=== PATIENT | female | born 1940 ===

== ENCOUNTER 2017-08-30 16:19 | Emergency (ER) | payer MEDICARE ==
[2017-08-30 16:19] VITALS: BMI 24.1
[2017-08-30 16:50] VITALS: BP 128/77; PULSE 76; RESP 18; TEMP 98.2; O2SAT 99
[2017-08-30] MEDS ORDERED: Lidocaine 5% Patch TD STA (17:37)
[2017-08-30] MEDS ORDERED: Lidocaine 5% Patch TD ONE (17:45)
--- NOTE | 2017-08-30 18:33 | C.PDOC ---
History Of Present Illness 77 yr old female presents to the ER s/p fall earlier this morning. Patient states she was babysitting her great grand son who was on the bed and upon calling him to her, he ran hard and slammed into her causing her to fall backwards on to the dresser, hitting the right side of the neck, right side of face and right shoulder. Patient states she did not fall to the ground but sat on the floor. Patient states she was able to stand up on her own, go about her day and the pain is 10/10. Reports taking Motrin but now feels her neck is stiff , unable to turn her neck to the right and has pain to the right side of her face. Patient denies LOC, vision changes, nausea, vomiting, headache, weakness or numbness. Time Seen by Provider: 08/30/17 17:29 Chief Complaint (Nursing): Headache History Per: Patient History/Exam Limitations: no limitations Onset/Duration Of Symptoms: Sudden Onset (Earlier this morning) Current Symptoms Are (Timing): Still Present Past Medical History Reviewed: Historical Data, Nursing Documentation, Vital Signs Vital Signs: Last Vital Signs Temp 98.2 F 08/30/17 16:46 Pulse 76 08/30/17 16:46 Resp 18 08/30/17 16:46 BP 128/77 08/30/17 16:46 Pulse Ox 99 08/30/17 18:37 - Medical History PMH: Depression, Gastritis Surgical History: Endoscopy (2008), Tonsillectomy (1946) - [facility] Procedures CYSTOSCOPY NEC (02/26/14) URETHRAL DILATION (02/26/14) Family History: States: No Known Family Hx - Social History Hx Tobacco Use: No Hx Alcohol Use: No Hx Substance Use: No - Immunization History Hx Tetanus Toxoid Vaccination: No Hx Influenza Vaccination: No Hx Pneumococcal Vaccination: No Review Of Systems Except As Marked, All Systems Reviewed And Found Negative. Constitutional: Positive for: Other ((+) Right side of face pain.) Eyes: Negative for: Vision Change Gastrointestinal: Negative for: Nausea, Vomiting Musculoskeletal: Positive for: Neck Pain (Right side ), Shoulder Pain (Right ) Neurological: Negative for: Weakness, Numbness, Headache Physical Exam - Physical Exam Appears: Non-toxic, No Acute Distress Skin: Warm, Dry, No Rash, Other ((+) Abrasion to the top tip of right ear. ) Head: Normacephalic, Other ((+) Tenderness to the right occipital scalp region. No laceration. Tenderness to the right SMC. ) Eye(s): bilateral: Normal Inspection, PERRL, EOMI Neck: Normal, Normal ROM, Supple, Other (No bruising.) Chest: Symmetrical, No Tenderness Cardiovascular: Rhythm Regular, No Murmur Respiratory: Normal Breath Sounds, No Rales, No Rhonchi, No Stridor, No Wheezing Extremity: Normal ROM (Right shoulder), Other (Right Shoulder - No bruising.) Neurological/Psych: Oriented x3, Normal Speech, Normal Motor ED Course And Treatment O2 Sat by Pulse Oximetry: 99 (RA) Pulse Ox Interpretation: Normal Medical Decision Making Medical Decision Making: PLAN: * Lidoderm TD * Flexeril PO * Motrin PO * Tylenol PO Disposition Counseled Patient/Family Regarding: Diagnosis, Need For Followup, Rx Given - Disposition Disposition: HOME/ ROUTINE Disposition Time: 18:42 Condition: STABLE Prescriptions: Cyclobenzaprine [Cyclobenzaprine HCl] 10 mg PO TID #15 tab Ibuprofen [Motrin] 1 tab PO TID PRN #30 tab PRN Reason: Pain Instructions: Contusion in Adults (ED) Forms: Gen Discharge Inst Venezuelan, [employer] (Venezuelan) - POA Present On Arrival: None - Clinical Impression Clinical Impression: Contusion, Head injury - Scribe Statement The provider has reviewed the documentation as recorded by the Scribe Edyta Mcclelland Provider Attestation: All medical record entries made by the Scribe were at my direction and personally dictated by me. I have reviewed the chart and agree that the record accurately reflects my personal performance of the history, physical exam, medical decision making, and the department course for this patient. I have also personally directed, reviewed, and agree with the discharge instructions and disposition.
== END 2017-08-30 18:47 | disposition home or self-care (01) ==
LOC: C.ER 16:19
DX: S00.83XA Contusion of other part of head, initial encounter (principal); W01.190A Fall on same level from slipping, tripping and stumbling with subsequent striking against furniture, initial encounter; Y93.89 Activity, other specified; Y92.89 Other specified places as the place of occurrence of the external cause

== ENCOUNTER 2017-09-22 15:09 | Emergency (ER) | payer MEDICARE ==
[2017-09-22 15:09] VITALS: BMI 24.1
[2017-09-22 15:22] VITALS: BP 134/69; PULSE 80; RESP 20; TEMP 97.6; O2SAT 99
--- NOTE | 2017-09-22 15:30 | C.PDOC ---
History Of Present Illness 77 year old female presents to the ED STP tripping and falling. Patient reports she was at [employer] where she tripped, fell and hit her lower back. Patient denies any dizziness, headache, head injury, LOC, weakness, numbness. Time Seen by Provider: 09/22/17 15:14 Chief Complaint (Nursing): Back Pain History Per: Patient History/Exam Limitations: no limitations Onset/Duration Of Symptoms: Hrs Current Symptoms Are (Timing): Still Present Quality Of Discomfort: Aching, "Pain" Severity: None Previous Symptoms: Back Pain Associated Symptoms: None Exacerbating Factor(s): Nothing Recent travel outside of the [place]: No Additional History Per: Patient Past Medical History Reviewed: Historical Data, Nursing Documentation, Vital Signs Vital Signs: Last Vital Signs Temp 97.6 F 09/22/17 15:19 Pulse 80 09/22/17 15:19 Resp 20 09/22/17 16:45 BP 134/69 09/22/17 15:19 Pulse Ox 99 09/22/17 16:17 - Medical History PMH: Depression, Gastritis Surgical History: Endoscopy (2008), Tonsillectomy (194) - [facility] [facility] Procedures CYSTOSCOPY NEC (02/26/14) URETHRAL DILATION (02/26/14) Family History: States: Unknown Family Hx - Social History Hx Tobacco Use: No Hx Alcohol Use: No Hx Substance Use: No - Immunization History Hx Tetanus Toxoid Vaccination: No Hx Influenza Vaccination: No Hx Pneumococcal Vaccination: No Review Of Systems Constitutional: Negative for: Fever, Chills Cardiovascular: Negative for: Chest Pain, Palpitations Respiratory: Negative for: Cough, Shortness of Breath Gastrointestinal: Negative for: Nausea, Vomiting, Abdominal Pain Genitourinary: Negative for: Dysuria, Hematuria Musculoskeletal: Positive for: Back Pain Skin: Negative for: Rash Neurological: Negative for: Weakness, Numbness Physical Exam - Physical Exam Appears: Non-toxic, No Acute Distress Skin: Normal Color, Warm, Dry Head: Atraumatic, Normacephalic Nose: No Discharge Oral Mucosa: Moist Neck: Normal ROM, Supple Chest: Symmetrical Cardiovascular: Rhythm Regular, No Murmur Respiratory: Normal Breath Sounds, No Rales, No Rhonchi, No Wheezing Gastrointestinal/Abdominal: Soft, No Tenderness Back: No Vertebral Tenderness, Paraspinal Tenderness (Lumbar), No Straight Leg Raising (Negative ) Extremity: Normal ROM, No Calf Tenderness, No Deformity, No Swelling Extremity: Bilateral: Hips Non-Tender, Normal ROM Neurological/Psych: Oriented x3, Normal Speech, Normal Cognition Gait: Steady ED Course And Treatment O2 Sat by Pulse Oximetry: 99 (On RA) Pulse Ox Interpretation: Normal - Other Rad LS spine X-Ray X-Ray: Interpreted by Me, Viewed By Me Interpretation: HISTORY: pain. COMPARISON: No prior. FINDINGS: BONES: Lumbar curvature is hyper lordotic and there may be a levoscoliotic thoracolumbar spinal deformity though this latter finding may be positional. No fracture or spondylolisthesis or destructive bony lesion appreciated. DISC SPACES: Marked disc height loss seen at L5-S1, mild at L4-5. Mild multilevel spondylosis identified upper to mid lumbar intervertebral disc spaces. OTHER FINDINGS: None. IMPRESSION: Hyper lordotic curvature and questionable levoscoliotic thoracic and upper lumbar spinal deformity though this may be positional. No fracture or spondylolisthesis. Multilevel degenerative disease appreciated throughout the lumbar spine. Progress Note: Treated with tylenol 650 mg PO. On re-evaluation ambulating with steady gait. In no distress Reassessment Condition: Improved Medical Decision Making Medical Decision Making: Plan: * Tylenol 650 mg PO given * LS spine X-Ray ordered Disposition Counseled Patient/Family Regarding: Studies Performed, Diagnosis, Need For Followup - Disposition Referrals: Yariel Rojas I [Medical Doctor] - Disposition: HOME/ ROUTINE Disposition Time: 16:20 Condition: STABLE Additional Instructions: Follow up with PMD for further evaluation Instructions: Fall Prevention for Older Adults (ED), Back Pain (ED) Forms: [employer] (Hebrew) - POA Present On Arrival: None - Clinical Impression Clinical Impression: Low back pain, Fall - 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 - Scribe Statement The provider has reviewed the documentation as recorded by the Scribe Fabián Nayak All medical record entries made by the Dinaibdarion were at my direction and personally dictated by me. I have reviewed the chart and agree that the record accurately reflects my personal performance of the history, physical exam, medical decision making, and the department course for this patient. I have also personally directed, reviewed, and agree with the discharge instructions and disposition.
--- NOTE | 2017-09-22 15:58 | RAD ---
PROCEDURE: Radiographs of the Lumbar Spine. HISTORY: pain COMPARISON: No prior. FINDINGS: BONES: Lumbar curvature is hyper lordotic and there may be a levoscoliotic thoracolumbar spinal deformity though this latter finding may be positional. No fracture or spondylolisthesis or destructive bony lesion appreciated. DISC SPACES: Marked disc height loss seen at L5-S1, mild at L4-5. Mild multilevel spondylosis identified upper to mid lumbar intervertebral disc spaces. OTHER FINDINGS: None. IMPRESSION: Hyper lordotic curvature and questionable levoscoliotic thoracic and upper lumbar spinal deformity though this may be positional. No fracture or spondylolisthesis. Multilevel degenerative disease appreciated throughout the lumbar spine.
== END 2017-09-22 16:45 | disposition home or self-care (01) ==
LOC: C.ER 15:09
DX: M54.5 Low back pain (principal); W01.0XXA Fall on same level from slipping, tripping and stumbling without subsequent striking against object, initial encounter; Y92.89 Other specified places as the place of occurrence of the external cause

== ENCOUNTER 2017-10-07 19:09 | Emergency (ER) | payer MEDICARE ==
[2017-10-07 19:10] VITALS: BMI 24.1
[2017-10-07 19:29] VITALS: O2SAT 99
--- NOTE | 2017-10-07 22:04 | C.PDOC ---
History Of Present Illness Pt was walking down stairs when she felt a "pop" behind her right knee and sudden onset of pain in the area. Time Seen by Provider: 10/07/17 19:33 Chief Complaint (Nursing): Lower Extremity Problem/Injury History Per: Patient, Family Onset/Duration Of Symptoms: Sudden Onset (Just TECHNOLOGY OFFICER) Current Symptoms Are (Timing): Still Present Severity: Moderate Additional History Per: Prior Records Past Medical History Reviewed: Historical Data, Nursing Documentation, Vital Signs Vital Signs: Last Vital Signs Temp 98.2 F 10/07/17 19:25 Pulse 87 10/07/17 19:25 Resp 20 10/07/17 19:25 BP 144/69 10/07/17 19:25 Pulse Ox 99 10/07/17 19:25 - Medical History PMH: Anxiety, Depression, Gastritis Surgical History: Endoscopy (2008), Tonsillectomy (194) - [facility] Procedures CYSTOSCOPY NEC (02/26/14) URETHRAL DILATION (02/26/14) Family History: States: Unknown Family Hx - Social History Hx Tobacco Use: No Hx Alcohol Use: No Hx Substance Use: No - Immunization History Hx Tetanus Toxoid Vaccination: No Hx Influenza Vaccination: No Hx Pneumococcal Vaccination: No Review Of Systems Except As Marked, All Systems Reviewed And Found Negative. Constitutional: Negative for: Fever Cardiovascular: Negative for: Chest Pain Respiratory: Negative for: Shortness of Breath, Hemoptysis Gastrointestinal: Negative for: Vomiting, Abdominal Pain Musculoskeletal: Positive for: Leg Pain (right). Negative for: Neck Pain, Back Pain Skin: Negative for: Rash Neurological: Negative for: Weakness, Numbness Physical Exam - Physical Exam Appears: Non-toxic, No Acute Distress Skin: Normal Color, Warm, Dry, No Rash Head: Atraumatic, Normacephalic Eye(s): bilateral: Normal Inspection, PERRL, EOMI Neck: Normal ROM, Supple Cardiovascular: Rhythm Regular Respiratory: Normal Breath Sounds, No Accessory Muscle Use Gastrointestinal/Abdominal: Soft, No Tenderness Back: No CVA Tenderness Extremity: Normal ROM, Tenderness (right popliteal), Calf Tenderness (right) Extremity: Bilateral: Normal Color And Temperature Pulses: Right Dorsalis Pedis: Normal Neurological/Psych: Oriented x3, Normal Motor, Normal Sensation ED Course And Treatment O2 Sat by Pulse Oximetry: 99 Pulse Ox Interpretation: Normal - Other Rad Right knee x-rays X-Ray: Interpreted by Me, Viewed By Me Interpretation: No acute fx or dislocation. Progress Note: Pt was placed in right knee immobilizer. Pt instructed to return tomorrow morning for RLE duplex US. Reassessment Condition: Improved Disposition Counseled Patient/Family Regarding: Studies Performed, Diagnosis, Need For Followup, Rx Given - Disposition Referrals: Sravan Martinez III, MD [Staff Provider] - Disposition: HOME/ ROUTINE Disposition Time: 22:07 Condition: FAIR Additional Instructions: Return to the ER tomorrow morning for a right leg ultrasound to rule out a blood clot. Forms: General Discharge Instructions, Gen Discharge Inst Georgian - Clinical Impression Clinical Impression: Right leg pain
[2017-10-07 22:56] VITALS: BP 148/72; PULSE 82; RESP 98; TEMP 97.8
--- NOTE | 2017-10-08 09:53 | RAD ---
PROCEDURE: Right Knee Radiographs. HISTORY: Pain COMPARISON: 07/14/2016 FINDINGS: BONES: There is no acute displaced fracture or bone destruction. Bone alignment is normal. There is mild bone demineralization. JOINTS: There is mild tricompartmental degenerative osteoarthrosis with reduced joint spaces and marginal spurring, worse in the medial compartment. JOINT EFFUSION: There is a small suprapatellar. OTHER FINDINGS: None. IMPRESSION: Mild degenerative osteoarthrosis in the medial compartment and small suprapatellar joint effusion joint effusion.
== END 2017-10-07 22:55 | disposition home or self-care (01) ==
LOC: C.ER 19:09
DX: M79.604 Pain in right leg (principal)

== ENCOUNTER 2017-10-08 11:01 | Emergency (ER) | payer MEDICARE ==
[2017-10-08 11:07] VITALS: BMI 25.0
[2017-10-08 11:13] VITALS: RESP 20; TEMP 97.6
--- NOTE | 2017-10-08 12:07 | C.PDOC ---
History Of Present Illness REFERRED FOR DOPPLER RO DVT. SEEN 10/07 FOR R KNEE PAIN. CO PERSIST PAIN BACK OF R KNEE. NO CP, SOB, NEW SX SINCE PRIOR EVAL EXAM EXT LIMITED ROM R KNEE NO DEFORM REMAINDER NEG Time Seen by Provider: 10/08/17 11:15 Chief Complaint (Nursing): Lower Extremity Problem/Injury History Per: Patient Onset/Duration Of Symptoms: Days Past Medical History Reviewed: Historical Data, Nursing Documentation, Vital Signs Vital Signs: Last Vital Signs Temp 97.6 F 10/08/17 11:10 Pulse 82 10/08/17 12:10 Resp 20 10/08/17 12:10 BP 118/74 10/08/17 12:10 Pulse Ox 100 10/08/17 16:23 - Medical History PMH: Anxiety, Depression, Gastritis Surgical History: Endoscopy (2008), Tonsillectomy (194) - [facility] Procedures CYSTOSCOPY NEC (02/26/14) URETHRAL DILATION (02/26/14) Family History: States: No Known Family Hx - Social History Hx Tobacco Use: No Hx Alcohol Use: No Hx Substance Use: No - Immunization History Hx Tetanus Toxoid Vaccination: No Hx Influenza Vaccination: No Hx Pneumococcal Vaccination: No Review Of Systems Except As Marked, All Systems Reviewed And Found Negative. Cardiovascular: Negative for: Chest Pain Respiratory: Negative for: Shortness of Breath Musculoskeletal: Positive for: Other ((+) Right knee pain). Negative for: Leg Pain Neurological: Negative for: Weakness, Numbness Physical Exam - Physical Exam Appears: Non-toxic, No Acute Distress Skin: Warm, Dry, No Rash, No Ecchymosis Head: Atraumatic, Normacephalic Oral Mucosa: Moist Extremity: No Calf Tenderness, No Deformity, Other (Limited ROM to the right knee) Neurological/Psych: Oriented x3, Normal Speech, Normal Motor, Normal Sensation ED Course And Treatment O2 Sat by Pulse Oximetry: 100 (RA) Pulse Ox Interpretation: Normal - Other Rad Right Dopplar X-Ray: Interpreted by Me, Viewed By Me Interpretation: NEG Medical Decision Making Medical Decision Making: PLAN: * Dopplar * Tylenol/Codeine PO Disposition Counseled Patient/Family Regarding: Studies Performed, Diagnosis, Need For Followup, Rx Given - Disposition Referrals: Sravan Martinez III, MD [Staff Provider] - [facility] [Outside] [facility] [Outside] Disposition: HOME/ ROUTINE Disposition Time: 12:06 Condition: IMPROVED Additional Instructions: SALINAS PRUEBA ES NEGATIVA PARA LA CLAVIJA DE EB. SEGUIMIENTO CON SALINAS MDICO Y / O ORTOPEDIA PARA EVALUACIN ADICIONAL. Prescriptions: Acetaminophen/Codeine [Tylenol/Codeine 300 MG/30 MG] 2 tab PO Q6H #20 tab Instructions: Knee Pain (ED) Forms: [employer] (Bengali) Print Language: THAI - Clinical Impression Clinical Impression: Knee pain - Scribe Statement The provider has reviewed the documentation as recorded by the Scribe Edyta Mcclelland Provider Attestation: All medical record entries made by the Scribe were at my direction and personally dictated by me. I have reviewed the chart and agree that the record accurately reflects my personal performance of the history, physical exam, medical decision making, and the department course for this patient. I have also personally directed, reviewed, and agree with the discharge instructions and disposition.
[2017-10-08] MEDS ORDERED: Acetaminophen-Codeine 300/30 mg Tab PO STA (12:09)
[2017-10-08] MEDS ORDERED: Acetaminophen-Codeine 300/30 mg Tab PO ONE (12:21)
[2017-10-08 12:52] VITALS: BP 118/74; PULSE 82
--- NOTE | 2017-10-08 13:56 | VASCLAB ---
PROCEDURE: Right Lower Extremity Venous Duplex Exam. HISTORY: pain PRIORS: None. TECHNIQUE: Right common femoral, femoral, popliteal and posterior tibial, peroneal and great saphenous veins were evaluated. Flow was assessed with color Doppler, compressibility, assessment of phasic flow and augmentation response. Report prepared by MARY Henderson, RVT FINDINGS: RIGHT: 1. Common Femoral Vein: 1.1. Compressibility - Fully compressible: Thrombus - None: Flow - Phasic: Augmentation -Normal: Reflux - None. 2. Femoral Vein: 2.1. Compressibility - Fully compressible: Thrombus - None: Flow - Phasic: Augmentation -Normal: Reflux - None. 3. Popliteal Vein: 3.1. Compressibility - Fully compressible: Thrombus - None: Flow - Phasic: Augmentation -Normal: Reflux - None. 4. Posterior Tibial Vein: 4.1. Compressibility - Fully compressible: Thrombus - None: Flow - Phasic: Augmentation -Normal: Reflux - None. 5. Peroneal Vein: 5.1. Compressibility - Fully compressible: Thrombus - None: Flow - Phasic: Augmentation -Normal: Reflux - None. 6. Great Saphenous Vein: 6.1. Compressibility - Fully compressible: Thrombus -None: Flow - Phasic: Augmentation - Normal: Reflux - Severe. OTHER FINDINGS: IMPRESSION: No evidence of deep or superficial vein thrombosis of the right lower extremity with excellent venous flow. Valvular incompetence of the right greater saphenous vein. Normal venous flow noted in the left common femoral vein.
[2017-10-08 16:22] VITALS: O2SAT 100
== END 2017-10-08 12:47 | disposition home or self-care (01) ==
LOC: C.ER 11:01
DX: M25.561 Pain in right knee (principal)

== ENCOUNTER 2017-11-15 17:00 | Emergency (ER) | payer MEDICARE ==
[2017-11-15 17:01] VITALS: BMI 25.0
[2017-11-15 17:18] VITALS: RESP 18
--- NOTE | 2017-11-15 19:19 | C.PDOC ---
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 Patient reports that she slipped and fell hitting the top of her head against the wall. Patient denies having LOC , syncope, severe headache, dizziness, visual changes, focal deficits, N/V, neck pain, CP, SOB, dyspnea, abd. pain, back pain, denies obvious deformity, sensory or vascular deficits to B/L UEs and LEs. Time Seen by Provider: 11/15/17 18:41 Chief Complaint (Nursing): Wound Check History Per: Patient History/Exam Limitations: no limitations Onset/Duration Of Symptoms: Hrs Current Symptoms Are (Timing): Still Present Severity: Moderate Past Medical History Reviewed: Historical Data, Nursing Documentation, Vital Signs Vital Signs: Last Vital Signs Temp 97.8 F 11/15/17 20:28 Pulse 70 11/15/17 20:28 Resp 18 11/15/17 20:28 BP 120/76 11/15/17 20:28 Pulse Ox 100 11/15/17 20:28 - Medical History PMH: Anxiety, Depression, Gastritis Surgical History: Endoscopy (2008), Tonsillectomy (194) - [facility] Procedures CYSTOSCOPY NEC (02/26/14) URETHRAL DILATION (02/26/14) Family History: States: No Known Family Hx - Social History Hx Tobacco Use: No Hx Alcohol Use: No Hx Substance Use: No - Immunization History Hx Tetanus Toxoid Vaccination: No Hx Influenza Vaccination: No Hx Pneumococcal Vaccination: No Review Of Systems Except As Marked, All Systems Reviewed And Found Negative. Musculoskeletal: Positive for: Leg Pain (left hip pain) Neurological: Negative for: Weakness, Numbness, Headache, Dizziness Physical Exam - Physical Exam Appears: Non-toxic, No Acute Distress Skin: Normal Color, Warm Head: Normacephalic, Other (contusion to the occipital) Eye(s): bilateral: PERRL, EOMI Ear(s): Bilateral: Normal Nose: No Deformity, No Tenderness Oral Mucosa: Moist, No Drooling, No Trismus Neck: Trachea Midline, No Midline Cervical Tenderness, No Paracervical Tenderness, No Step Off Deformity, Supple Chest: Symmetrical, No Deformity, No Tenderness Cardiovascular: Rhythm Regular Respiratory: No Accessory Muscle Use, No Rales, No Rhonchi, No Wheezing Gastrointestinal/Abdominal: Soft, No Tenderness, No Distention, No Guarding Back: No Vertebral Tenderness, No Paraspinal Tenderness Extremity: Normal ROM (B/L UEs and LEs), Tenderness (tenderness overlying left hip), No Deformity, No Swelling Neurological/Psych: Oriented x3, Normal Speech, Normal Cognition, Normal Motor, Normal Sensation, Normal Reflexes ED Course And Treatment O2 Sat by Pulse Oximetry: 99 (RA) Pulse Ox Interpretation: Normal - Other Rad HIp, Left hip X-Ray: Interpreted by Me, Viewed By Me Interpretation: no acute fx or dislocation - CT Scan/US CT head Other Rad Studies (CT/US): Radiology Report Reviewed CT/US Interpretation: IMPRESSION: 1. No intracranial hemorrhage. 2. Nonspecific white matter changes. 3. Incidental/non-acute findings are described above. . Dictated By: Matthias Funes MD. Dictated Date/Time: 1956. Signed By: Matthias Funes MD C-spine Other Rad Studies (CT/US): Read By Radiologist, Radiology Report Reviewed CT/US Interpretation: IMPRESSION: 1. No fracture. 2. Incidental/non-acute findings are described above. Thank you for allowing us to participate in the care of your patient. Dictated and Authenticated by: Matthias Funes MD. 11/15 8:17 PM Eastern Time ([place] & [place]) Progress Note: On re-eavluation, pt is afebrile, hemodynamicaly stable. Non- toxic. Pt was able to ambulate in ED. Neck: SUpple, (-) midline tenderness. Lungs: CTA B/L, BS equal B/L>. Neuorlogicaly intact. Imaging review and appears without acute findings. Pt has clinical findings c/w head injury, Left hip contusion. Pt advised OBS 48 hrs for any sign of head injury-return to ED if any new changes. ref. to F/u with PMD, Ortho in 2 -3 days for re-eavl. return if any new changes. Disposition Counseled Patient/Family Regarding: Studies Performed, Diagnosis, Need For Followup, Rx Given - Disposition Referrals: Yariel Rojas I [Medical Doctor] - Disposition: HOME/ ROUTINE Disposition Time: 20:18 Condition: STABLE Additional Instructions: OBSERVE 48 HOURS FOR ANY SIGN OF HEAD INJURY-INTRACTABLE HEADACHE, VOMITING, LETHARGY, OR ANY OTHER NEW CHANGES-RETURN TO ED IMMEDIATELY FOR RE-EVALUATION. TAKE PAIN MEDICATION NEED LIGHT DUTY, AVOID WALKING FOR 2-3 DAYS FOLLOW UP WITH PMD, ORTHOPEDIST IN 2-3 DAYS FOR RE-EVALUATION. Prescriptions: Methocarbamol [Robaxin] 500 mg PO TID #14 tab traMADol [Ultram] 50 mg PO TID #7 tab Instructions: Head Injury (ED), Hip Contusion (ED) Forms: [employer] (Uruguayan) Print Language: AMHARIC - Clinical Impression Clinical Impression: Head injury, Contusion, hip, Fall - PA / THEATRE MANAGER / Resident Statement MD/DO has reviewed & agrees with the documentation as recorded. - Scribe Statement The provider has reviewed the documentation as recorded by the Gurvinder Tidwell Provider Attestation All medical record entries made by the Gurvinder were at my direction and personally dictated by me. I have reviewed the chart and agree that the record accurately reflects my personal performance of the history, physical exam, medical decision making, and the department course for this patient. I have also personally directed, reviewed, and agree with the discharge instructions and disposition.
--- NOTE | 2017-11-15 19:58 | CT ---
EXAM: CT Head Without Intravenous Contrast CLINICAL HISTORY: 77 years old, female; Injury or trauma; Fall; Initial encounter; Abrasion; Head, generalized TECHNIQUE: Axial computed tomography images of the head/brain without intravenous contrast. All CT scans at this facility use one or more dose reduction techniques, viz.: automated exposure control; ma/kV adjustment per patient size (including targeted exams where dose is matched to indication; i.e. head); or iterative reconstruction technique. COMPARISON: No relevant prior studies available. FINDINGS: Brain: [id number]-[id number]-[id number] atrophy. No intracranial hemorrhage. No mass. Few scattered foci of decreased attenuation within periventricular/subcortical white matter. No edema. Ventricles: No hydrocephalus. Bones/joints: No acute fracture. Few small lucent calvarial lesions, nonspecific. Soft tissues: Parietal soft tissue swelling. Vasculature: Atherosclerotic disease of intracranial arteries. Sinuses: Mild focal mucosal thickening of LEFT sphenoid sinus. Minimal mucosal thickening of LEFT maxillary sinus. Mastoid air cells: No mastoid effusion. Orbits: Unremarkable as visualized. IMPRESSION: 1. No intracranial hemorrhage. 2. Nonspecific white matter changes. 3. Incidental/non-acute findings are described above.
--- NOTE | 2017-11-15 20:17 | CT ---
EXAM: CT Cervical Spine Without Intravenous Contrast CLINICAL HISTORY: 77 years old, female; Injury or trauma; Fall; Initial encounter; Blunt trauma TECHNIQUE: Axial computed tomography images of the cervical spine without intravenous contrast. All CT scans at this facility use one or more dose reduction techniques, viz.: automated exposure control; ma/kV adjustment per patient size (including targeted exams where dose is matched to indication; i.e. head); or iterative reconstruction technique. Sagittal reformatted images were created and reviewed. COMPARISON: No relevant prior studies available. FINDINGS: Vertebrae: No acute fracture. Degenerative retrolithesis of mid cervical spine. Discs/spinal canal/neural foramina: Early degenerative disc disease within mid cervical spine. Mild degenerative disc disease within mid to lower cervical spine. Mild central canal stenosis within mid cervical spine. Soft tissues: Unremarkable. Vasculature: Mild atherosclerotic disease. Sinuses: Mild focal mucosal thickening of LEFT sphenoid sinus. Minimal mucosal thickening of LEFT maxillary sinus. Lung apices: Mild mosaic pattern of lung parenchyma with scattered groundglass opacities, nonspecific. IMPRESSION: 1. No fracture. 2. Incidental/non-acute findings are described above.
[2017-11-15 20:28] VITALS: BP 120/76; PULSE 70; TEMP 97.8
--- NOTE | 2017-11-16 08:35 | RAD ---
PROCEDURE: HISTORY: injury COMPARISON: None TECHNIQUE: AP view of the pelvis and applicable frog leg views obtained. FINDINGS: No fracture or dislocation appreciated. Bilateral superolateral hip joint space narrowing bilateral superolateral mild acetabular spurring. Bilateral L4-5 facet hypertrophic arthrosis. Trace inferior right sacroiliac sclerosis. Pubic symphysis unremarkable. Bilateral hemipelvic phleboliths. . Densities over right iliac bone probable injection gluteal granulomas IMPRESSION: No fracture or dislocation. Bilateral hip mild arthrosis bilateral L4-5 facet arthrosis
[2017-11-16 14:01] VITALS: O2SAT 99
== END 2017-11-15 20:42 | disposition home or self-care (01) ==
LOC: C.ER 17:00
DX: S09.90XA Unspecified injury of head, initial encounter (principal); S70.02XA Contusion of left hip, initial encounter; W01.0XXA Fall on same level from slipping, tripping and stumbling without subsequent striking against object, initial encounter

== ENCOUNTER 2018-08-02 09:26 | Emergency (ER) | payer MEDICARE ==
[2018-08-02 09:27] VITALS: BMI 25.0
[2018-08-02 09:43] VITALS: O2SAT 96
[2018-08-02] MEDS ORDERED: Lidocaine 5% Patch TD ONE (09:43)
--- NOTE | 2018-08-02 09:43 | C.PDOC ---
History Of Present Illness 78 y/o female presents to the ED complaining of persistent right lower chest wall pain for 2 weeks. Patient states she accidentally fell 2 weeks ago, now complaining of persistent pain to the area. Pain worsens with movement and coughing. She reports minimal relief with Tylenol at home. Denies any SOB, palpitations, severe headache, nausea, vomiting, or other associated symptoms. - HPI Time Seen by Provider: 08/02/18 09:38 Chief Complaint (Nursing): Back Pain History Per: Patient History/Exam Limitations: no limitations Onset/Duration Of Symptoms: Days Injury Occurred (Timing): Days Ago: (14) Past Medical History Reviewed: Historical Data, Nursing Documentation, Vital Signs - Medical History PMH: Anxiety, Depression, Gastritis Surgical History: Endoscopy (2008), Tonsillectomy (194) - [facility] Procedures CYSTOSCOPY NEC (02/26/14) URETHRAL DILATION (02/26/14) Family History: States: Unknown Family Hx - Social History Hx Tobacco Use: No Hx Alcohol Use: No Hx Substance Use: No - Immunization History Hx Tetanus Toxoid Vaccination: No Hx Influenza Vaccination: No Hx Pneumococcal Vaccination: No Review Of Systems Except As Marked, All Systems Reviewed And Found Negative. Constitutional: Negative for: Fever Eyes: Negative for: Vision Change Cardiovascular: Positive for: Chest Pain (pain to right lower chest wall). Negative for: Palpitations Respiratory: Negative for: Shortness of Breath Gastrointestinal: Negative for: Nausea, Vomiting Neurological: Negative for: Weakness, Numbness, Headache, Dizziness Physical Exam - Physical Exam Appears: Non-toxic, No Acute Distress Skin: Warm, Dry Head: Atraumatic, Normacephalic Eye(s): bilateral: Normal Inspection Neck: Normal ROM Chest: Symmetrical, No Deformity, Tenderness (Diffuse tenderness to the right lower lateral chest wall, no crepitus) Cardiovascular: Rhythm Regular Respiratory: Normal Breath Sounds (CTA bilaterally), No Rales, No Rhonchi, No Wheezing, Other (NARD) Back: Normal Inspection (Atraumatic), No Vertebral Tenderness, No Paraspinal Tenderness Extremity: Bilateral: Atraumatic, Normal Color And Temperature Neurological/Psych: Oriented x3, Normal Speech, Normal Cranial Nerves, Normal Motor, Normal Sensation, Normal Reflexes ED Course And Treatment O2 Sat by Pulse Oximetry: 96 (RA) Pulse Ox Interpretation: Normal - Radiology CXR: Read By Radiologist (D/W DR ERENDIRA LUCIA) Progress - Data Reviewed Data Reviewed: Diagnostic imaging, Old records Medical Decision Making Medical Decision Making: Impression: 78 y/o F with right chest wall pain s/p trauma 2 weeks ago Plan: --Ribs/Chest x-ray --Flexeril 10 mg PO --Lidoderm patch x1 X-ray results discussed with patient. On reevaluation, patient reports improvement in pain and remains AAOx3, afebrile, in no acute distress. Patient is stable for discharge home. Advised to take all medications as prescribed and follow up as instructed. Disposition Counseled Patient/Family Regarding: Studies Performed, Diagnosis, Need For Followup, Rx Given - Disposition Referrals: YOUR,PMD [Other] Disposition: HOME/ ROUTINE Disposition Time: 10:21 Condition: IMPROVED Additional Instructions: APPLY PATCH TO AFFECTED AREA. MAX 3 PATCHES AT A TIME. REMOVE PATCH 12 HOURS AFTER INITIAL APPLICATION. ALTERNATE 12 HOURS ON, 12 HOURS OFF. Prescriptions: Cyclobenzaprine [Flexeril] 5 mg PO TID #15 tab Lidocaine 5% [Lidoderm] 1 ea TD PRN PRN #10 patch PRN Reason: Pain, Moderate (4-7) Instructions: Bruised Rib (DC) Forms: [employer] (Swedish) - Clinical Impression Clinical Impression: Chest wall contusion, Rib pain - Scribe Statement The provider has reviewed the documentation as recorded by the Scribe (Shireen Landa) Provider Attestation: All medical record entries made by the Scribe were at my direction and personally dictated by me. I have reviewed the chart and agree that the record accurately reflects my personal performance of the history, physical exam, medical decision making, and the department course for this patient. I have also personally directed, reviewed, and agree with the discharge instructions and disposition.
[2018-08-02 10:32] VITALS: BP 123/78; PULSE 87; RESP 18; TEMP 97.7
--- NOTE | 2018-08-02 10:32 | RAD ---
Date of service: 08/02/2018 PROCEDURE: Radiographs of the Chest and Right Ribs. HISTORY: TRAUMA LOWER RIB PAIN COMPARISON: 11/15/2017 TECHNIQUE: Frontal radiograph of the chest and multiple oblique radiographs of the right ribs were obtained. FINDINGS: RIGHT RIBS: No evidence of right rib fracture. LUNGS: Opacity lower right hemithorax in the frontal chest radiograph. This is likely due to abnormal opacity associated with surgical sutures at the right base as well as overlying soft tissues and possible pleural thickening at the lateral right base, supra superimposed on the frontal chest radiograph. There is not felt to be consolidation or mass at the right base. There is no infiltrate elsewhere. PLEURA: No pneumothorax or pleural fluid. CARDIOVASCULAR: Normal sized heart. No pulmonary vascular congestion. OTHER FINDINGS: None. IMPRESSION: No acute infiltrate. Postoperative changes right hemithorax. No evidence of right rib fracture.
== END 2018-08-02 10:37 | disposition home or self-care (01) ==
LOC: C.ER 09:26
DX: S20.211A Contusion of right front wall of thorax, initial encounter (principal); W19.XXXA Unspecified fall, initial encounter; R07.81 Pleurodynia